=== PATIENT | female | born 1960 | race Caucasian/White ===

== ENCOUNTER 2025-02-02 15:48 | Emergency (ER) | payer MEDICARE, OTHER ==
[~2025-02-02] VITALS: Ht 170.2 cm; Wt 79.5 kg
[2025-02-02 15:58] VITALS: BP 147/76; PULSE 65; RESP 16; TEMP 99.2; O2SAT 99
[2025-02-02] MEDS ORDERED: SULF1TAB45 PO (17:04)
[2025-02-02] MEDS ORDERED: PRED10TA23 PO (17:04)
--- NOTE | 2025-02-02 17:09 | Physician Documentation ---
History of Present Illness ~ Chief Complaint: Rash Stated Complaint: STAPH INFECTION Time Seen by MD: 16:36 HPI 64-year-old female presents to the ED with a complaint of sores on both of her hands and a rash on her head and neck. States he went to urgent care and took amoxicillin which did not improve her symptoms. She was sent here for evaluation of MRSA Reports that her head and neck are very itchy in reports pain in the pustules of her hands Day of Onset: Feb 02, 2025 Medication Reconciliation Allergies: Coded Allergies: No Known Allergies (Unverified , 02/02/25) Review of Systems All Other Systems at this time: Reviewed and Negative ROS As stated above in the HPI, otherwise all systems are reviewed and negative. Physical Exam Vital Signs: Temperature: 99.2, Source: Oral, Heart Rate: 65, Respiratory Rate: 16, BP: 147/76, Pulse Oximetry: 99, Weight: 79.550 Oxygen Flow Rate: 0 Physical Exam General: Alert, no apparent distress. Extremities: Normal range of motion, no deformity. small pustulse on on both hands Neurologic: Oriented x4. Psychiatric: Normal mood and affect. Skin: Normal color, flaky reddened skin posteriro neck Progress Results/Orders Results/Orders Vital Signs 02/02/25 15:58 Temp 99.2 Pulse 65 Resp 16 B/P (MAP) 147/76 Pulse Ox 99 O2 Flow Rate 0 Medical Decision Making Additional information obtaine: old records Findings Treating empirically for suspected MRSA infection in eczema. Differential Dx:Considerations: Include: Abscess, AIDS/HIV, Anthrax (cutaneous), Atopic dermatitis, Candidiasis, Contact dermatitis, Drug reaction, Erythema multiforme, Erysipelas, Gangrene, Herpes zoster, Herpes simplex, Hidradenitis suppurativa, Impetigo, Intertrigo, Lymes disease, Molluscum contagiosum, Osteomyelitis, Pediculosis, Pityriasis rosea, Psoriaisis, RMSF, R osacea, Scabies, Scarlet fever, Tinea, Urticaria, Varicella, Viral exanthema, Other Departure Disposition: HOME / SELF CARE / HOMELESS Impression: Primary Impression: Urticaria Additional Impression: Infection of skin and subcutaneous tissue Discharge Instructions: Pruritus, Cellulitis, Adult Referrals: NO PRIMARY CARE PROVIDER (PCP) Prescriptions Prednisone (Prednisone) 10 Mg Tablet 1 TAB PO BID for 5 Days, #10 TAB Prov: SHIV LOVETT NP 02/02/25 Sulfamethoxazole/Trimethoprim (Septra Ds Tab) 800 Mg/160 Mg Tablet 1 TAB PO Q12H for 10 Days, #20 TAB Prov: SHIV LOVETT TUBE REBUILDER 02/02/25 Education Educated: Patient Educated regarding: diagnosis Signature Scribe Signature: vf Attestation: Scribed for Shiv Lovett Manager Advanced by Shiv Montaño NP . 02/02/25 17:05 SHIV LOVETT NP Feb 02, 2025 17:09
== END 2025-02-02 17:31 | disposition home or self-care (01) ==
LOC: ER 15:49
DX: L50.9 Urticaria, unspecified (principal); L08.9 Local infection of the skin and subcutaneous tissue, unspecified
CPT/HCPCS: 99283